=== PATIENT | male | born 1950 | race Hispanic/Latino ===

== ENCOUNTER 2017-11-13 08:33 | Emergency (ER) | payer MEDICARE ==
[~2017-11-13] VITALS: Ht 170.2 cm; Wt 117.9 kg
[~2017-11-13 08:33] MED LIST: BUPROPION HCL100 MG PO; COZAAR25 MG PO; DOXYCYCLINE HYC20 MG PO; FINASTERIDE5 MG PO; LAMISIL250 MG PO; MULTIVITAMINS1 EAC7 PO; PANTOPRAZOLE SO40 MG PO; WELCHOL625 MG PO
[2017-11-13] MEDS ORDERED: KETOROLAC TROMETHAMINE 60 MG/2 ML VIAL IM ONE (09:15)
[2017-11-13 11:01] VITALS: BP 143/93
== END 2017-11-13 11:06 | disposition home or self-care (01) ==
LOC: ER 08:33
DX: M54.5 Low back pain (principal); S39.012A Strain of muscle, fascia and tendon of lower back, initial encounter; M54.2 Cervicalgia; S16.1XXA Strain of muscle, fascia and tendon at neck level, initial encounter; M25.562 Pain in left knee; V43.52XA Car driver injured in collision with other type car in traffic accident, initial encounter; Y92.488 Other paved roadways as the place of occurrence of the external cause; I10 Essential (primary) hypertension; I25.10 Atherosclerotic heart disease of native coronary artery without angina pectoris
CPT/HCPCS: 99282; J1885

== ENCOUNTER → 2017-12-28 | Day surgery (SDC) | payer MEDICARE ==
[2017-12-26 15:17] LABS: BASOPHILS % 0.5 % (0.0-1.0); EOSINOPHILS # (AUTO) 0.1 (0.0-0.4); EOSINOPHILS % 1.1 % (0.0-6.0); HEMOGLOBIN 12.5 g/dL (14.0-18.0); LYMPHOCYTES # (AUTO) 2.6 (1.0-3.2); LYMPHOCYTES % 34.7 % (18.0-39.1); MEAN CORPUSCULAR HEMOGLOBIN 24.4 pg (28-32); MEAN CORPUSCULAR HGB CONC 32.1 g/dL (31-35); MEAN CORPUSCULAR VOLUME 76.2 fL (81-99); MONOCYTES # (AUTO) 0.8 (0.2-0.8); MONOCYTES % 10.6 % (4.4-11.3); NEUTROPHILS # (AUTO) 3.9 (2.1-6.9); NEUTROPHILS % 52.8 % (38.7-80.0); PLATELET COUNT 207 x10e3/uL (140-360); RED BLOOD COUNT 5.12 x10e6/uL (4.3-5.7); RED CELL DISTRIBUTION WIDTH 14.3 % (11.7-14.4)
[~2017-12-28] MED LIST changes: +DOXYCYCLINE HY100 MG PO; +FENTANYL CITRATE/PF 100MCG/2 ML INJ ONE; +HYOSCYAMINE SULFATE 0.5 MG/ML AMP ONE; +MIDAZOLAM HCL 2 MG/2 ML VIAL ONE; +PROPOFOL IV EMULSION 10 MG/ML 20 ML VIAL ONE
--- NOTE | 2017-12-29 02:12 | Operative Report ---
DATE OF PROCEDURE: December 28, 2017 REFERRING PHYSICIAN: Asha Crespo MD PROCEDURES PERFORMED 1. Esophagogastroduodenoscopy with biopsies. 2. Colonoscopy with polypectomy and biopsies. INDICATIONS FOR EGD: Iron-deficiency anemia, history of marginal ulcers. INDICATIONS FOR COLONOSCOPY: Colorectal cancer screening, iron-deficiency anemia, personal history of colon polyps. MEDICATION: Patient was done under MAC. Please see anesthesiologist's note. PROCEDURE: With patient in left lateral decubitus position, flexible fiberoptic Olympus gastroscope was introduced into the esophagus under direct visualization without any difficulty. Esophagus appeared to be within normal limits. The scope was then advanced with ease into the stomach. Patient is status post Wilton-en-Y anastomosis, was intact, previously described marginal ulcers appeared to have resolved. Some scattered nodules were noted in the gastric stump, and biopsies were obtained. The scope was then retroflexed and the fundus appeared to be within normal limits, as well as the cardia. The scope was then straightened out and was subsequently withdrawn. Patient tolerated the procedure well. IMPRESSIONS 1. Normal esophagus. 2. Status post Wilton-en-Y, anastomosis intact. 3. Scattered nodules, gastric stump biopsied. 4. Previously described marginal ulcers well healed. PLAN: Follow up histology. Initiate Protonix 40 mg 1 p.o. q.a.m. a.c. Patient was then turned around. After adequate lubrication of the anal canal, a flexible fiberoptic Olympus colonoscope was inserted into the rectum with ease and advanced all the way to the cecum. Prep overall was suboptimal with retained stools in the colon, but visualization was fair. The scope was then withdrawn slowly. Mucosa overlying the cecum, ascending, and transverse grossly appeared to be within normal limits. There was some mild patchy inflammatory changes in the left colon. Random biopsies were obtained. Diverticular disease was also noted. Seven polyps were hot biopsied from the sigmoid colon and 4 polyps were snared and 2 polyps were hot biopsied from the rectum. The scope was then retroflexed into the distal rectum and small internal hemorrhoids were noted. None of which was actively bleeding. The scope was then straightened out. It was subsequently withdrawn. Patient tolerated the procedure well. IMPRESSIONS 1. Suboptimal prep. 2. Mild patchy left-sided colitis. 3. Diverticulosis. 4. Sigmoid colon polyps times 7, hot biopsied. 5. Rectal polyps times 6, 4 snared and 2 hot biopsied. 6. Internal hemorrhoids, none actively bleeding. PLAN 1. Follow up histology. 2. Initiate high-fiber, low-fat diet. 3. Initiate high-fiber supplement. 4. Patient will need small bowel series to complete workup. Job#: [id number] CQ cc:ASHA CRESPO MD
== END | disposition home or self-care (01) ==
LOC: OR 13:25
PROVIDERS: ATTEND Internal Medicine Gastroenterology
DX: D50.9 Iron deficiency anemia, unspecified (principal); K62.1 Rectal polyp; K63.5 Polyp of colon; K51.50 Left sided colitis without complications; K31.89 Other diseases of stomach and duodenum; Z98.84 Bariatric surgery status; K57.30 Diverticulosis of large intestine without perforation or abscess without bleeding; K64.8 Other hemorrhoids; I10 Essential (primary) hypertension; Z01.810 Encounter for preprocedural cardiovascular examination; Z01.812 Encounter for preprocedural laboratory examination; Z68.37 Body mass index [BMI] 37.0-37.9, adult; Z87.891 Personal history of nicotine dependence
CPT/HCPCS: 36415; 43239; 45384; 45385; 85025; 88305; 93005; J1980; J2250; 45380; 88312